=== PATIENT | male | born 1940 | race Caucasian/White ===

== ENCOUNTER 2018-12-06 08:17 | Emergency (ER) | payer OTHER ==
[~2018-12-06] VITALS: Ht 177.8 cm; Wt 88.0 kg
[2018-12-06 08:21] VITALS: Ht 177.8 cm; Wt 88.0 kg
[2018-12-06 09:26] VITALS: BP 158/80
== END 2018-12-06 09:15 | disposition home or self-care (01) ==
LOC: ED 08:17
DX: B00.52 Herpesviral keratitis (principal); B02.9 Zoster without complications; I10 Essential (primary) hypertension; E11.9 Type 2 diabetes mellitus without complications; Z95.1 Presence of aortocoronary bypass graft